=== PATIENT | female | born 1965 | race Caucasian/White ===

== ENCOUNTER → 2022-11-09 10:15 | Outpatient (BNVA) | payer MEDICAID, SELFPAY | PROVIDERS: Referring Provider Family Medicine; Visit Provider Nurse Practitioner Family | DX: M17.11 Unilateral primary osteoarthritis, right knee | CPT/HCPCS: 73560; 73565 ==

== ENCOUNTER 2022-11-13 16:44 | Inpatient (IN) | payer MEDICAID, SELFPAY ==
--- NOTE | 2022-11-13 17:30 | CTR_ITS ---
PROCEDURE INFORMATION: Exam: CT Right Lower Extremity Without Contrast, Ankle Exam date and time: 11/13/2022 10:55 PM Age: 57 years old Clinical indication: Injury or trauma; Fall; Fracture, traumatic; Displaced; Not specified; Patient HX: Fracture of right ankle. ; Additional info: Tib fib fracture R/O posterior malleolus involvement TECHNIQUE: Imaging protocol: CT of the right lower extremity without contrast was performed. Exam focused on the ankle. Radiation optimization: All CT scans at this facility use at least one of these dose optimization techniques: automated exposure control; mA and/or kV adjustment per patient size (includes targeted exams where dose is matched to clinical indication); or iterative reconstruction. REPORTING DATA: Count of CT and Cardiac NM exams in prior 12 months: This patient has received 0 known CTs and 0 known cardiac nuclear medicine studies in the 12 months prior to the current study. COMPARISON: CR (LOW EXM, ) 11/13/2022 6:11 PM RADIATION DOSE METRICS: Total DLP (mGy-cm): 778.7 FINDINGS: Bones/joints: Acute comminuted fracture of the distal tibial shaft extending to the level of the metaphysis with 2 butterfly fracture fragments. Larger butterfly fracture fragment demonstrates mild lateral displacement. The distal tibia demonstrates approximately 1/2 shaft width medial displacement relative to the proximal tibia. No evidence of intra-articular extension. Minimally displaced fracture at the medial malleolus. Predominantly transverse fracture through the distal fibular shaft which demonstrates comminution. Mild medial displacement of the distal fibula. Normal tibiotalar and tibiofibular syndesmotic alignment. Soft tissues: Diffuse ankle soft tissue swelling but most prominent over the lateral malleolus. CT/CT ankle RT wo con* [id number] IMPRESSION: 1. Acute comminuted extra-articular fracture of the distal tibial shaft extending to the metaphysis associated with approximately 1/2 shaft width medial displacement of the distal tibia . 2. Distal fibular shaft fracture with mild displacement. 3. Minimally displaced medial malleolus fracture.
--- NOTE | 2022-11-13 17:30 | XRR_ITS ---
PROCEDURE INFORMATION: Exam: XR Right Tibia and Fibula Exam date and time: 11/13/2022 6:10 PM Age: 57 years old Clinical indication: Injury or trauma; Other: N/a; Additional info: Right tib fib FX TECHNIQUE: Imaging protocol: Radiologic exam of the right tibia and fibula. Views: 2 views. COMPARISON: CR (LOW EXM, ) 11/13/2022 6:07 PM FINDINGS: Bones/joints: Oblique, mildly comminuted fracture of the distal tibial shaft extending to the metaphysis. Approximately half shaft with medial displacement. Additional mildly displaced transverse fracture through the distal fibular shaft with mild medial displacement. Mild anterior displacement of the distal fibula and tibia. Soft tissues: Overlying splint material. XR/XR tibia fibula RT 2V [id number] IMPRESSION: 1. Splint material limits evaluation of the soft tissues and osseous structures. 2. Oblique fracture of the distal tibia without definite intra-articular extension although nondisplaced fracture line extending to the tibiotalar joint is possible. Approximately half shaft width medial displacement of the distal tibia. 3. Transverse fracture of the distal fibula shaft with mild displacement.
--- NOTE | 2022-11-13 17:30 | XRR_ITS ---
PROCEDURE INFORMATION: Exam: XR Right Ankle Exam date and time: 11/13/2022 6:11 PM Age: 57 years old Clinical indication: Injury or trauma; Other: N/a; Additional info: R tib fib FX TECHNIQUE: Imaging protocol: Radiologic exam of the right ankle. Views: 3 or more views. COMPARISON: CR (LOW EXM, ) 11/13/2022 6:10 PM FINDINGS: Bones/joints: Distal tibia and fibular shaft fractures as described on tibia-fibula report. Ankle mortise appears congruent on this nonweightbearing exam. Soft tissues: Unremarkable. XR/XR ankle RT min 3V* [id number] IMPRESSION: Displaced distal tibia and fibular shaft fractures as previously described.
--- NOTE | 2022-11-13 17:30 | XRR_ITS ---
PROCEDURE INFORMATION: Exam: XR Right Knee Exam date and time: 11/13/2022 6:07 PM Age: 57 years old Clinical indication: Injury or trauma; Other: N/a; Additional info: Right tib fib FX TECHNIQUE: Imaging protocol: Radiologic exam of the right knee. Views: 1 or 2 views. COMPARISON: CR XR knees AP WB w RT lmt ORTH 11/09/2022 10:15 AM FINDINGS: Bones/joints: Moderate tricompartmental knee osteoarthrosis. No acute fracture involving the knee. Trace knee joint effusion. Soft tissues: Splint material.. XR/XR knee RT 1-2V [id number] IMPRESSION: No acute osseous abnormality of the right knee.
--- NOTE | 2022-11-13 17:33 | P.MISC_ITS ---
Miscellaneous Note Purpose of Documentation: Ortho note: Full orthopedic consultation note to follow tomorrow morning. Orthopedics was contacted by the [facility] about a potential transfer for a right tib-fib fracture per [facility] emergency department. X-rays were reviewed this is an isolated trauma injury of patient stepping into a hole and has a right distal tib-fib fracture. Per the emergency department at [facility] this is a closed neurovascular intact injury. Patient was splinted and transportation was set up with patient to be admitted by hospitalist team orthopedics consulted. I reviewed the images we will obtain further x-rays once they arrive at [facility] with plan for a CT scan of the right ankle to evaluate for posterior malleolus involvement. Reviewing of the imaging there appears to be enough distal bone stock of the distal tibia to perform a right knee suprapatellar tibial nail with plan for ORIF of the distal fibula given its proximity ankle syndesmosis. Patient will be medically optimized by the internal medicine team. Hold a.m. anticoagulation tomorrow n.p.o. at midnight tonight with plan for surgical intervention at 8 AM tomorrow. Nonweightbearing right lower extremity maintain splint elevation and ice this evening to maintain swelling. Orthopedics will have full orthopedic consult note tomorrow. Jesús Zaragoza DO/orthopedic surgery
--- NOTE | 2022-11-13 17:48 | PM.HP ---
Providers/Chief Complaint Admitting Physician: Jass Bowling DO Chief Complaint: right tibfib fracture History of Present Illness Maria D Russ is a 57 year old female with no significant PMH transferred to hospital for ortho consult from [facility] with Right Tib/Fib fracture. Reports that she was walking on steps when she tripped and fell, resulting in Right ankle twisting underneath her. She was taken to [facility] where XRs confirmed fracture. Ortho was consulted and hospitalist team consulted for medical management. Reports that she is not having much pain at this time. She has not had labs drawn at this time. Ortho is planning to see her later today and plan for surgery tomorrow. Review of Systems General: Reports: 10 or more systems reviewed and unremarkable except in HPI and below Const: Denies: fever(s) or chills Musc: Reports: extremity pain and extremity swelling Medications/Allergies Home Medications Medication Instructions Recorded Confirmed Last Taken Type meloxicam 15 mg tablet 15 mg PO DAILY #60 tabs 11/09/22 11/09/22 Unknown Rx Allergies Allergy/AdvReac Type Severity Reaction Status Date / Time alprazolam [From Xanax] Allergy sick Verified 11/09/22 10:12 codeine Allergy ADR-Confusi Verified 11/13/22 17:31 on Penicillins Allergy sick Verified 11/09/22 10:12 Vitals/I&O/Wt Last Vital Signs O2 Del Method Room Air 11/13/22 16:53 Weight last 48 hrs Weight 274 lb Physical Exam Narrative: General: Cooperative patient in no apparent distress. Well developed. HEENT: Normocephalic, Atraumatic. External ears normal. Nasal passages patent without drainage. MMM. Heart: RRR. Resp: LCTA. No respiratory distress, no use of accessory muscles. Abd: Soft, non-tender. Non-distended. Extremities: No edema. RLE with wrap in place. Cap refill <2sec. Skin: No rash or lesions on exposed areas. Neuro: No focal motor or sensory loss. Data 11/13/22 18:40 11/13/22 18:40 A&P Assessment and plan (1) Fracture of right tibia and fibula: (2) Nicotine dependence, cigarettes, with other nicotine-induced disorders: Plan 57 yo F admitted for R tib/fib fracture fracture. Admit to med surg. ortho consulted. Planning for surgery tomorrow. NPO after midnight. Hold VTE PPx until after surgery. Labs today. Nicotine patch. Pain currently controlled. Dilaudid and morphine available if needed for analgesia. Code Status: full IVF: None DVT PPx: SCD's GI PPx: Protonix ABx: Ortho to determine. Diet: NPO after midnight. Regular diet for dinner. Discharge plan: Home when able. Attestations Medical Necessity Statement*: Admit to inpatient for surgical repair of tib/fib. Coding Level of Care Code Acute Code for Chg Fwd Straight Forward/Low MDM includes number and complexity of problems actively addressed during encounter, amount and/or complexity of data reviewed/ordered and described risk of complication, morbidity or mortality of management as documented Diagnoses Fracture of right tibia and fibula S82.201A; S82.401A Nicotine dependence, cigarettes, with other nicotine-induced disorders F17.218
[2022-11-13] MEDS: nicotine 14 mg Patch 1 PATCH TRANSDERMA (18:22)
[2022-11-13 18:23] VITALS: RESP 18
[2022-11-13] MEDS: morphine 4 mg/mL SDV 1 mL 2 MG IVP (18:23)
[2022-11-13 18:55] LABS: Basophils # 0.1 10^3/uL (0.0-0.1); Basophils % 0.5 %; Eosinophils # 0.1 10^3/uL (0.0-0.8); Eosinophils % 1.1 %; Hematocrit 47.3 % (36-47); Lymphocytes # 2.7 10^3/uL (0.8-4.8); Lymphocytes % 25.5 %; Mean Corpuscular HGB Conc 31.7 g/dL (30-55); Mean Corpuscular Hemoglobin 29.9 pg (27-33); Mean Corpuscular Volume 94.4 fl (85-98); Mean Platelet Volume 10.1 fL (7.4-10.4); Monocytes # 0.9 10^3/uL (0.2-0.9); Monocytes % 8.1 %; Neutrophils # 6.75 10^3/uL (1.8-7.7); Neutrophils % 64.5 %; Nucleated Red Blood Cells % 0 %; Platelet Count 303 10^3/cmm (157-399); Red Blood Count 5.01 10^6/uL (3.85-5.65); Red Cell Distribution Width 15.9 % (12.1-15.1); White Blood Count 10.45 10^3/uL (3.29-11.43)
[2022-11-13 19:42] LABS: Alanine Aminotransferase 27 U/L (0-33); Alkaline Phosphatase 118 U/L (35-105); Anion Gap 13.6 (5-19); Aspartate Amino Transferase 21 U/L (0-32); Blood Urea Nitrogen 19 mg/dL (6-20); Calcium 8.9 mg/dL (8.5-10.5); Carbon Dioxide 28 mmol/L (22-29); Chloride 102 mmol/L (98-107); Glomerular Filtration Rate 46.5 mL/min (90-130); Glucose 148 mg/dL (65-115); Osmolality Calculated 293 mOsm/kg (285-295); Potassium 4.6 mmol/L (3.5-5.1); Sodium 139 mmol/L (136-145); Total Bilirubin 0.3 mg/dL (0.15-1.2)
[2022-11-13 20:23] VITALS: RESP 18
[2022-11-13] MEDS: HYDROmorphone 1 mg/mL INJ 1 mL 0.5 MG IVP ×2 (20:23→23:41)
[2022-11-13 20:40] VITALS: BP 154/88; PULSE 88; RESP 19; TEMP 36.8; O2SAT 90
[2022-11-13] MEDS: TRAMadol 50 mg Tablet PO (20:48)
[2022-11-13] MEDS: acetaminophen 500 mg Tablet 1000 MG PO (20:49)
[2022-11-13 23:13] VITALS: BP 131/92; PULSE 80; RESP 20; TEMP 36.8; O2SAT 97
[2022-11-13 23:41] VITALS: RESP 16
[2022-11-14] VITALS (32 sets, daily range): BP systolic 023–188; BP diastolic 70–116; PULSE 72–106; RESP 16–24; TEMP 36.5–37.1; O2SAT 87–96
--- NOTE | 2022-11-14 | XR_ITS ---
WS: [id number] Exam: XR tibia fibula RT 2V [id number] Date/Time of Exam: 11/14/2022 12:00 AM Reason For Exam: ORIF RIGHT TIB FIB. OR PIC Intraoperative C-arm images of the RIGHT tibia and fibula are submitted for evaluation. There is a comminuted fracture of the lower tibia stabilized with intramedullary nidia fixation in sati sfactory alignment. There is also plate and screw fixation of a comminuted distal fibular fracture in satisfactory position. No other fractures are identified. The remainder of the tibia and fibula is i ntact. Moderate DJD at the knee. IMPRESSION: 1. Satisfactory internal fixation involving fractures of the distal tibia and fibula.
[2022-11-14] MEDS: oxyCODONE 5 mg IR Tab/Cap PO ×2 (02:31→16:28)
[2022-11-14] MEDS: acetaminophen 500 mg Tablet 1000 MG PO ×2 (04:57→21:27)
[2022-11-14] MEDS: HYDROmorphone 1 mg/mL INJ 1 mL 0.5 MG IVP ×2 (05:04→13:53)
[2022-11-14 05:51] LABS: Basophils # 0.1 10^3/uL (0.0-0.1); Basophils % 0.6 %; Eosinophils # 0.3 10^3/uL (0.0-0.8); Eosinophils % 3.9 %; Lymphocytes # 2.3 10^3/uL (0.8-4.8); Lymphocytes % 29.8 %; Mean Corpuscular HGB Conc 31.3 g/dL (30-55); Mean Corpuscular Hemoglobin 29.8 pg (27-33); Mean Corpuscular Volume 95.1 fl (85-98); Monocytes # 0.8 10^3/uL (0.2-0.9); Monocytes % 10.7 %; Neutrophils # 4.24 10^3/uL (1.8-7.7); Neutrophils % 54.9 %; Nucleated Red Blood Cells % 0 %; Platelet Count 268 10^3/cmm (157-399); Red Blood Count 4.73 10^6/uL (3.85-5.65); Red Cell Distribution Width 15.9 % (12.1-15.1); White Blood Count 7.73 10^3/uL (3.29-11.43)
[2022-11-14 06:20] LABS: Magnesium 2.1 mg/dL (1.7-2.3)
--- NOTE | 2022-11-14 07:22 | PM.CONSULT ---
Providers/Reason For Consult Consulting Physician/Specialty*: Jesús Zaragoza DO/orthopedic surgery Reason for Consult*: Right tib-fib fracture Requesting Physician: Dr. Mar Attending Physician: Jass Bowling DO History of Present Illness History of Present Illness Maria D Russ is a 57 year old female with no significant PMH transferred to hospital for ortho consult from [facility] with Right Tib/Fib fracture. Reports that she was walking on steps when she tripped and fell, resulting in Right ankle twisting underneath her.? She was taken to [facility] where XRs confirmed fracture.? Ortho was consulted and hospitalist team consulted for medical management.? Report from emergency department was patient had a closed neurovascular intact injury and was splinted sent to the [facility]. Patient states pain is controlled with medications. Patient denies any fevers chills chest pain shortness of breath nausea or vomiting. She does have a smoking history she was educated on the importance of smoking cessation particularly in the way of fracture healing. Denies any history of diabetes mellitus. she denies any loss of consciousness or any other pain or injury elsewhere in her body. Patient's been n.p.o. since midnight. Review of Systems General: Reports: 10 or more systems reviewed and unremarkable except in HPI and below Medications/Allergies Home Medications Medication Instructions Recorded Confirmed Last Taken Type meloxicam 15 mg tablet 15 mg PO DAILY #60 tabs 11/09/22 11/09/22 Unknown Rx Allergies Allergy/AdvReac Type Severity Reaction Status Date / Time alprazolam [From Xanax] Allergy sick Verified 11/09/22 10:12 codeine Allergy ADR-Confusi Verified 11/13/22 17:31 on Penicillins Allergy sick Verified 11/09/22 10:12 Current Medications Generic Name Dose Route Start Last Admin Trade Name Freq PRN Reason Stop Dose Admin Acetaminophen 1,000 mg 11/13/22 20:15 11/14/22 04:57 Acetaminophen 500 Mg Tablet PO 1,000 mg Q8H DALIA Administration Hydromorphone HCl 0.5 mg 11/13/22 20:04 11/14/22 05:04 Hydromorphone 1 Mg/Ml Inj 1 Ml IVP 0.5 mg Q3H PRN Administration MILD PAIN Morphine Sulfate 2 mg 11/13/22 17:44 11/13/22 18:23 Morphine 4 Mg/Ml Sdv 1 Ml IVP 2 mg Q4H PRN Administration SEVERE PAIN Nicotine 1 patch 11/13/22 18:00 11/13/22 18:22 Nicotine 14 Mg Patch TRANSDERMA 1 patch DAILY DALIA Administration Oxycodone HCl 5 - 10 mg 11/13/22 20:07 11/14/22 02:31 Oxycodone 5 Mg Ir Tab/Cap PO 5 mg Q4H PRN Administration SEVERE PAIN Tramadol HCl 50 mg 11/13/22 20:11 11/13/22 20:48 Tramadol 50 Mg Tablet PO 50 mg Q6H PRN Administration BREAKTHROUGH PAIN Vitals/I&O/Wt Last Vital Signs Temp 98.3 F 11/14/22 04:56 Pulse 85 11/14/22 04:56 Resp 19 H 11/14/22 05:04 BP 156/83 11/14/22 04:56 Pulse Ox 90 11/14/22 04:56 O2 Del Method Room Air 11/13/22 16:53 11/13/22 11/14/22 11/14/22 22:59 06:59 14:59 Intake Total 240 / 240 Balance 240 / 240 Weight last 48 hrs Weight 274 lb Physical Exam Narrative: Orthopedic examination: General cooperative patient no apparent distress moderate discomfort secondary to pain HEENT-Normocephalic atraumatic Respiratory-normal respirations no retractions or respiratory distress Orthopedic specific examination right lower extremity is placed in a short leg splint. Her compartments are soft and compressible. She has tenderness to palpation at the fracture site given patient's unstable fracture the splint was left on in place and limits my full examination. She has tenderness to palpation of her right knee and guarded on knee range of motion secondary to her lower extremity fracture. She is able to wiggle her toes she does endorse sensations intact to light touch of the toes the toes are pink warm and perfused. Patient has no pain with logroll at the right hip. Secondary survey examination demonstrates no tenderness to palpation of the bilateral shoulders elbows wrists or hands or the left lower extremity joints she has normal range of motion of these joints with no tenderness to palpation and gross motor and sensory is intact. Data 11/14/22 05:36 11/13/22 18:[address]: My impression: Review of images of the CT scan of the right ankle demonstrate a distal fibular shaft fracture with mild displacement as well as an extra-articular distal tibia shaft fracture does not appear to have any posterior malleolus or intra-articular involvement. There does appear to be a small fracture of the medial malleolus more consistent with a deltoid avulsion Radiologist's impression: CT/CT ankle RT wo con* [id number] IMPRESSION: 1. ? Acute comminuted extra-articular fracture of the distal tibial shaft extending to the metaphysis associated with approximately 1/2 shaft width medial displacement of the distal tibia . 2. ? Distal fibular shaft fracture with mild displacement. 3. ? Minimally displaced medial malleolus fracture. ? Xray Ortho: My impression: Review of x-rays of the knee tib-fib and ankle demonstrate a distal third tib-fib fracture comminuted. Does not appear to have intra-articular involvement. Patient was has no previous hardware in the ankle or the knee however right knee degenerative joint disease noted with a valgus deformity. A&P Assessment and plan (1) Fracture of right tibia and fibula: (2) Osteoarthritis of right knee: Qualifiers: Osteoarthritis type: primary Qualified Code(s): M17.11 - Unilateral primary osteoarthritis, right knee (3) Nicotine dependence, cigarettes, with other nicotine-induced disorders: Plan N.p.o. since midnight Nonweightbearing Maintain splint Internal medicine for medical management and preoperative optimization Reviewed Labs Reviewed images?CT scan demonstrates no posterior malleolus involvement Right tib-fib fracture recommend OR today for right tibia intramedullary nail and possible distal fibula open reduction internal fixation Patient understands and agrees with current plan. All questions answered. Patient is a 57-year-old female sustained a right tib-fib fracture closed neurovascularly intact with splint at an outside facility, transferred to our facility from management. Patient's had appropriate imaging performed CT scan demonstrates no posterior malleolus involvement and she has an appropriate bone stock distally I feel this can accommodate a intramedullary nail with hopefully not disrupting much of her biology of the distal tibial shaft fracture. There is a small nondisplaced medial malleolus avulsion type injury this does not appear to have a large bony fragment associated and is in perfect position we will likely treat this nonoperatively. She does have a distal fibula fracture that is close to the ankle syndesmosis and will stress this after the tibial nail is placed and potentially ORIF the distal fibula. Patient understands risk benefits complication alternatives with surgery risk of surgery include not limited to make a better make it worse injury to nerves vessels or tendons, knee pain, malunion, nonunion, failure of hardware, further surgery to remove hardware. Understanding these risks with surgery patient elects proceed with surgical intervention. All questions have been answered at this time. Consult Attestations Medical Necessity Statement: Right distal tib-fib fracture Coding Level of Care Code Acute Code for [facility] Diagnoses Fracture of right tibia and fibula S82.201A; S82.401A Osteoarthritis of right knee M17.11 Osteoarthritis type: primary Nicotine dependence, cigarettes, with other nicotine-induced disorders F17.218 Time Spent (min) 45
[2022-11-14] MEDS: sodium chloride 0.9% 1,000 ML 30 ML IV (07:54)
--- NOTE | 2022-11-14 08:17 | ANES.PREANE2 ---
Pre-Anesthetic Assessment Height/Weight: Height 1.73 m Weight 124.284 kg Temp Pulse Resp BP Pulse Ox O2 Del Method O2 Flow Rate 97.7 F 76 16 152/88 95 Nasal Cannula 3 11/14/22 07:40 11/14/22 07:40 11/14/22 07:40 11/14/22 07:40 11/14/22 07:40 11/14/22 07:40 11/14/22 07:40 Preop Diagnosis: Right tib fib fracture Operation Date: 11/14/22 08:20 Proposed Procedures p ORIF Tibia/Fibula(Right) - Jesús Buchanan, Familial anesthetic complications: none Was Beta Edson taken within 24 hours: N/A Was Clonidine taken within 24 hours: N/A Last intake: Intake Last Liquid Date 11/13/22 Last Liquid Time 23:00 Last Solid Date 11/13/22 Last Solid Time 17:00 Social Tobacco and No alcohol Exam alert, oriented x 3 and regular rate & rhythm Airway Submandibular: within normal limits Cervical ROM: within normal limits Mallampati: Class II Dentition: chipped and loose Comments: Comments: Very poor dentition Pulmonary Chronic Obstructive Pulmonary Disease Metabolic Morbid Obesity [facility] Osteoarthritis/DJD Anesthetic Plan ASA status: 3 Anesthesia: General Medications/Allergies Home Medications Medication Instructions Recorded Confirmed Last Taken Type meloxicam 15 mg tablet 15 mg PO DAILY #60 tabs 11/09/22 11/09/22 Unknown Rx hydrocodone 5 mg-acetaminophen 325 1 tab PO Q6H PRN pain 5 days #20 11/14/22 Unknown Rx mg tablet tabs ondansetron 4 mg disintegrating 4 mg PO Q8H PRN nausea and 11/14/22 Unknown Rx tablet vomiting 3 days #9 tabs Allergies Allergy/AdvReac Type Severity Reaction Status Date / Time alprazolam [From Xanax] Allergy sick Verified 11/09/22 10:12 codeine Allergy ADR-Confusi Verified 11/13/22 17:31 on Penicillins Allergy sick Verified 11/09/22 10:12 Current Medications Generic Name Dose Route Start Last Admin Trade Name Freq PRN Reason Stop Dose Admin Acetaminophen 1,000 mg 11/13/22 20:15 11/14/22 04:57 Acetaminophen 500 Mg Tablet PO 1,000 mg Q8H DALIA Administration Hydromorphone HCl 0.5 mg 11/13/22 20:04 08/26/23 05:04 Hydromorphone 1 Mg/Ml Inj 1 Ml IVP 0.5 mg Q3H PRN Administration MILD PAIN Sodium Chloride 1,000 mls @ 30 mls/hr 11/14/22 07:45 11/14/22 07:54 Sodium Chloride 0.9% IV 30 mls/hr .Q24H DALIA Administration Morphine Sulfate 2 mg 11/13/22 17:44 11/13/22 18:23 Morphine 4 Mg/Ml Sdv 1 Ml IVP 2 mg Q4H PRN Administration SEVERE PAIN Nicotine 1 patch 11/13/22 18:00 11/13/22 18:22 Nicotine 14 Mg Patch TRANSDERMA 1 patch DAILY DALIA Administration Oxycodone HCl 5 - 10 mg 11/13/22 20:07 11/14/22 02:31 Oxycodone 5 Mg Ir Tab/Cap PO 5 mg Q4H PRN Administration SEVERE PAIN Tramadol HCl 50 mg 11/13/22 20:11 11/13/22 20:48 Tramadol 50 Mg Tablet PO 50 mg Q6H PRN Administration BREAKTHROUGH PAIN Data Anesthesia 11/14/22 05:36 11/13/22 18:40 Short CBC 11/13/22 11/14/22 Range/Units 18:40 05:36 WBC 10.45 7.73 (3.29-11.43) 10^3/uL Hgb 15.00 14.10 (11.27-16.99) g/dL Hct 47.3 H 45.0 (36-47) % MCV 94.4 95.1 (85-98) fl Plt Count 303 268 (157-399) 10^3/cmm Neut % (Auto) 64.5 54.9 % Neut # (Auto) 6.75 4.24 (1.8-7.7) 10^3/uL BMP 11/13/22 18:40 Sodium 139 Potassium 4.6 Chloride 102 Carbon Dioxide 28 BUN 19 Creatinine 1.2 H Glucose 148 H Calcium 8.9 Liver Function 11/13/22 Range/Units 18:40 Total Bilirubin 0.3 (0.15-1.2) mg/dL AST 21 (0-32) U/L ALT 27 (0-33) U/L Alkaline Phosphatase 118 H (35-105) U/L Albumin 4.0 (3.5-5.2) g/dL Blood Bank 11/13/22 18:40 Blood Type B Positive Rho(D) Type Positive Antibody Screen Negative Cardiac Studies: No Data to Display
[2022-11-14] MEDS: ceFAZolin 2,000 MG in sodium chloride 0.9% (plus) 50 ML 100 MG IV ×2 (10:32→18:23)
--- NOTE | 2022-11-14 13:24 | PM.OP2 ---
Brief Operative Note Date of procedure: 11/14/22 Pre-op diagnosis: comminute Distal tibial shaft fracture and distal fib fracture Post-op diagnosis: same Procedure Done: Right distal tibia shaft suprapatella intramedulary nail Rigth distal fibula open reduction with internal fixation Surgeon: Jesús Zaragoza Estimated blood loss (mL): 150 Complications: none Post-op Plan: Keep dressing clean dry and intact Leave splint on and in place until follow-up visit Do not get splint wet, if it does contact the office for a office visit to have it changed No baths or soaks Nonweightbearing to operative extremity Utilize crutches/walker/knee scooter as tolerated to continue with ambulation while maintaining restrictions Encourage knee range of motion as tolerated Ice and elevate as needed for pain and swelling Take pain medication as prescribed Take antinausea medication as needed Take lovenox for blood clot prevention Supplement with Citracal/vitamin D for bone health and healing Take [id number] Colace as needed for constipation postoperatively Follow-up with Dr. Zaragoza in the office in 2 weeks Contact the office for any questions or concerns(i.e. fevers, increased drainage or redness around the incision site etc.)? Condition: stable Disposition: PACU Coding Level of Care Code Acute Code for Jimg Yeny
--- NOTE | 2022-11-14 13:29 | XR_ITS ---
WS: [id number] Exam: XR tibia fibula RT 2V [id number] Date/Time of Exam: 11/14/2022 1:29 PM Reason For Exam: ORIF Tib fib Comparison 11/14/2022 at 11:28 a.m. . There is a comminuted spiral fracture of the lower tibia stabilized with intramedullary nidia fixatio n. There is also plate and screw fixation involving a comminuted fracture of the lower fibula. Both f ractures are in good alignment for healing. Surgical skin clips noted medial and lateral at the ankl e. The remainder of the tibia and fibula are intact. Moderate degenerative changes at the knee. Poste rior fiberglass splint. IMPRESSION: 1. Satisfactory ORIF involving fractures of the distal tibia and fibula with internal fixation.
--- NOTE | 2022-11-14 13:29 | PM.PACU ---
PACU note Narrative: Patient is a 57-year-old female who had a right distal tib-fib and fibula fracture. She underwent right tibia shaft suprapatellar intramedullary nail and right distal fibula open reduction with internal fixation. pt transferred to PACU in stable condition. Dressing is dry. pt is awake and alert. Responding to my questions accordingly. Unable to assess plantarflexion and dorsiflexion due to splint in place. Patient can wiggle toes. Distal pulses are palpable toes are warm and well-perfused. Pain is controlled. Exam: somnolent, arousable Disposition: back to floor
--- NOTE | 2022-11-14 13:30 | PM.OP ---
Operative Report Date of procedure: November 14, 2022 Pre-op diagnosis: Preop Diagnosis Right tib fib fracture Procedure: Post-op diagnosis: Right distal tibia fracture Right distal fibula fracture Procedure done: Right distal tibia shaft suprapatellar intramedulary nail Right distal fibula open reduction with internal fixation Implants: Param tibial nail 10 mm x 360 mm Proximal screws: 5 mm x 47.5 mm, 5 mm x 42.5 mm Distal screws: Advanced locking screws 5 mm x 47.5 mm, 5 mm x 40 mm, 5mm x 40.5 Param anatomic distal fibula plate 5 hole Combination of 3.5 mm locking and nonlocking screws Surgeon: Jesús Zaragoza DO Balloon Seller: TIFFANI Augustine was necessary for assistance in execution of procedure by assistance with maintaining traction and holding reduction while nail is being passed as well as to stabilize length as well as assistance with retraction and protection of neurovascular structures Estimated blood loss: 125mL No tourniquet was used during this case IV fluids: See anesthesia record Urine output: See anesthesia record Complications: None Findings: See operative report narrative Condition: stable Disposition: floor Brief History: Patient seen evaluated in outside emergency department found to have a displaced and comminuted right distal tib-fib fracture this was excepted by our facility by her primary hospitalist team and orthopedics was consulted. Patient has a closed neurovascularly intact injury to the right lower extremity no other injuries noted. Review of imaging does show comminuted distal tib-fib fracture on the right side. We did obtain CT scans which showed no intra-articular extension. The distal fibula fracture is low and in close proximity to the syndesmosis and ankle joint and will be evaluated intraoperatively as far as fixation goes. Given patient had enough of the distal bone stock decision was made for a right tibia suprapatellar nail as well as possibly a right distal fibula open reduction internal fixation we talked about treatment options in detail. Patient's been medically optimized per the primary team. Patient understands the risk benefits complications alternatives to surgical and nonsurgical treatment options.? She understands her risks and she through shared decision making elects to proceed with surgical intervention.? All questions answered. Procedure: Patient was seen and evaluated in the preoperative holding area.? Consent was reviewed and signed with patient.? All questions were answered preoperatively.? The correct extremity was marked.? Anesthesia seen evaluated patient once cleared for surgery and was medically optimized by the internal medicine team patient was then taken back to the operative suite.? She was placed in supine position.? All bony prominences well-padded patient was appropriately secured to the bed.? She underwent anesthesia per the anesthesia department.? The right ipsilateral hip was then placed with a bump and a bone foam was applied to the right lower extremity.? A nonsterile tourniquet applied to the right thigh.? Once appropriately anesthetized the right lower extremity was then prepped and draped in standard orthopedic fashion.? Final timeout performed.? Patient received appropriate preoperative antibiotics. Tourniquet was not insufflated during this case. I began with the suprapatellar nail for the tibial fracture.? Small incision made longitudinally above the superior pole of patella sharp scalpel incision through skin and subcutaneous tissue.? I mobilized the fat off of the quad tendon this was split longitudinally directly into the knee joint.? This was then evacuated of synovial fluid and subsequently entered Transactis's suprapatellar nail guide device and then placed my starting guidewire and appropriate position which was confirmed and AP and lateral planes to be in appropriate position just medial to lateral tibial spine and just off the articular margin anteriorly.? Once this was confirmed to be in appropriate position I then placed my opening reamer and then subsequently inserted the long ball-tipped guidewire which was then impacted directly onto the physis.? My surgical assistant certified was utilized to maintain traction and assist in holding reduction. Guidewire impacted into the distal physis. This is excellent center center position.?? At this point my ball-tipped guidewire was in center center position appropriately and set for reaming.? Reduction was manually held throughout the reaming. I used large fluoroscopic C arm for the entirety and placement of nail as well as to evaluate for reaming and maintenance of fracture reduction. I then took a measurement and the nail was confirmed to be 360 mm in length.? I then subsequently reamed up to a 11-1/2 mm reamer which had excellent chatter and plan for a 10 mm nail.? Reduction was maintained throughout reaming this was then subsequently opened on the back table and attached to the assistant professor of biochemistry guide.? While my surgical assistant certified stabilized the foot I then subsequently impacted the nail to appropriate depth the nail was in center center position with maintenance of anatomic reduction.? I then locked the screw proximally with the cannulated targeting guide.? First started with my static locking screw which was then subsequently small stab incision blunt hemostat directly onto bone subsequently drilled measured and placed in appropriate length proximal locking screw.? Next I placed an additional proximal locking screw in the subsequent same fashion this was placed in the dynamic hole.? Screw was then subsequently placed and had excellent fixation this completed the proximal fixation.? I then transitioned to my distal screw fixation which plan was for perfect [place] technique.? I subsequently utilizing perfect [place] technique with fluoroscopic imaging made a small stab incision to lock the screw from medial to lateral of my distal most screw this was subsequently drilled measured and appropriate length screw was then subsequently placed and had excellent fixation.? I did utilize Param's advanced locking technology for added fixation given the distal nature of this fracture. Given there was enough bone stock distally I then utilizing the same perfect [place] technique placed an additional distal advance locking screw from medial to lateral position. This was subsequently drilled measured appropriate length screw placed. Excellent fixation noted. next I placed an additional advanced locking screw from anterior to posterior which a small stab incision was made blunt dissection with hemostat directly onto bone and inserted the drill bit and subsequently drilled measured and placed in appropriate length screw utilizing perfect [place] technique from anterior to posterior.?This completed my distal fixation.? I then subsequently stressed the ankle with external stress test and shifting of the talus was noted with medial clear space widening and shifting in fracture movement of the distal fibula as result given the instability and inherent nature of ankle stability elected for open reduction internal fixation distal fibula. A standard direct lateral approach was made to the right distal fibula? Incision was made centered over fracture of the distal fibula.? Care was made to protect the SPN nerve.? I then utilized a ling face elevator to elevate the periosteum off the distal fibula.? Transverse fracture of the distal fibula was noted. This was then freed of debris and I used sharp scalpel excision to clear off the cortical bone to obtain in anatomic read for anatomic reduction and appropriate fibular length and rotation.? Given the transverse nature this was not amendable for lag screw fixation and plan was for bridge plating technique. Once fracture was appropriately reduced I utilized C arm to confirm appropriate positioning and fibular length as well as rotation once I was satisfied with this I then elected for a 5 hole distal fibular anatomic plate with Transactis. this was confirmed to be in appropriate position and multiple orthogonal images and I subsequently drilled a nonlocking screw proximally to bring the plate to bone as well as distally to secure the plate to bone distally.? Once I was satisfied with my appropriate plate placement and maintenance of reduction this plate was placed in neutralization fashion and I subsequently made a combination of locking and nonlocking screws to complete this construct.? This completed distal fibula fixation. I then subsequently took the ankle through external stress test and at this point in time the ankle mortise was stable and congruent symmetric on the mortise as well as external stress test mortise no evidence of clear space widening or shifting of the talus. This completed my fixation. Hemostasis was satisfactory.? All suprapatellar insertion guides were then subsequently removed I then took final x-rays of the entire tib-fib confirming satisfactory reduction and fixation distal tib-fib fracture. Incisions were all then thoroughly irrigated. I then subsequently closed the incisions in standard fashion.? Lateral incision was closed with interrupted 2-0 Vicryl suture and britton.? The proximal incision was then closed with deep 0 Vicryl 2-0 Vicryl and britton for skin.? The small percutaneous incisions were then closed with staple incision sites were then dressed with Xeroform 4 x 4's ABD Curlex soft roll and cast padding a posterior Ortho-Glass short leg splint was then applied.? Patient was then subsequently awakened from anesthesia and taken the PACU in stable condition.? Patient tolerated procedure without complications. Disposition:Patient taken to PACU in stable condition.? Recovering well.? Patient will return to the floor postoperatively.? We will be nonweightbearing to the right lower extremity.? Posterior short leg splint on in place.? PT/OT.? Postoperative antibiotics.? Elevation and ice.? DVT prophylaxis.? Internal medicine on board for medical management.? Orthopedics will continue to monitor.? We will follow-up with me in the office in 2 weeks.
[2022-11-14] MEDS: fentaNYL 50 mcg/mL INJ 2mL 100 MCG IVP (13:34)
[2022-11-14] MEDS: hyDRALAzine 20 mg/mL INJ 1 mL 10 MG IVP (13:41)
[2022-11-14] MEDS: fentaNYL 50 mcg/mL INJ 2mL IVP (13:45)
--- NOTE | 2022-11-14 13:50 | PM.PN ---
Subjective Subjective: Recently back from surgery. States that she is hungry, would like something to eat. Is requesting some pain medication at this time. Vitals/I&O/Wt Last Vital Signs Temp 98.2 F 11/14/22 13:24 Pulse 94 11/14/22 13:35 Resp 22 H 11/14/22 13:35 BP 172/102 11/14/22 13:35 Pulse Ox 93 11/14/22 13:35 O2 Del Method Simple Mask 11/14/22 13:35 O2 Flow Rate 10 11/14/22 13:35 11/13/22 11/14/22 11/14/22 22:59 06:59 14:59 Intake Total 240 / 240 550 / 550 Output Total 125 / 125 Balance 240 / 240 425 / 425 Weight last 48 hrs Weight 274 lb Physical Exam Narrative: General: Cooperative patient in no apparent distress. Well developed. HEENT: Normocephalic, Atraumatic. External ears normal. Nasal passages patent without drainage. MMM. Heart: RRR. Resp: LCTA. No respiratory distress, no use of accessory muscles. Abd: Soft, non-tender. Non-distended. Extremities: RLE with dressing in place. Cap refill is <2 seconds. Skin: No rash or lesions on exposed areas. Neuro: No focal motor or sensory loss. Data 11/14/22 05:36 11/13/22 18:40 A&P Assessment and plan (1) Fracture of right tibia and fibula: (2) Nicotine dependence, cigarettes, with other nicotine-induced disorders: Plan 57 yo F admitted for R tib/fib fracture fracture Status post ORIF of the right tib-fib. Continue close inpatient monitoring. Patient is recently back from surgery. Will allow regular diet. Repeat a.m. labs. Arranging for DME and discharge needs. PT/OT to evaluate and treat. Nicotine patch. Lovenox for VTE ppx. Analgesia per ortho. Code Status: full IVF: LR at 75. DVT PPx: Lovenox GI PPx: Protonix ABx: Cefazolin Diet: Regular Discharge plan: Home. consider HH referral. Attestations Medical Necessity Statement*: Continue inpatient management for post-surgical monitoring, PT/OT, DME, abx. Coding Level of Care Code Acute Code for Chg Fwd Moderate MDM includes number and complexity of problems actively addressed during encounter, amount and/or complexity of data reviewed/ordered and described risk of complication, morbidity or mortality of management as documented Diagnoses Fracture of right tibia and fibula S82.201A; S82.401A Nicotine dependence, cigarettes, with other nicotine-induced disorders F17.218
[2022-11-14] MEDS: lactated ringers 1,000 ML 75 ML IV (15:15)
[2022-11-14] MEDS: calcium carb-vit d 600mg/400unit 1 Tablet 1 EACH PO (17:48)
[2022-11-14] MEDS: iron polysaccharide complex 150 mg Capsule PO (17:48)
[2022-11-14] MEDS: docusate sodium 100 mg Capsule PO (17:48)
[2022-11-14] MEDS: chlorhexidine gluconate 0.12% Btl 473 mL 30 ML MUCOUS MEM ×2 (17:51→21:27)
[2022-11-15] VITALS (8 sets, daily range): BP systolic 143–156; BP diastolic 76–86; PULSE 67–98; RESP 16–20; TEMP 36.4–37.1; O2SAT 92–98
[2022-11-15] MEDS: ceFAZolin 2,000 MG in sodium chloride 0.9% (plus) 50 ML 100 MG IV ×2 (02:33→09:06)
[2022-11-15] MEDS: lactated ringers 1,000 ML 75 ML IV (04:02)
[2022-11-15] MEDS: acetaminophen 500 mg Tablet 1000 MG PO ×3 (04:02→21:02)
[2022-11-15] MEDS: morphine 4 mg/mL SDV 1 mL 2 MG IVP ×2 (04:08→22:09)
[2022-11-15 04:57] LABS: Basophils % 0.2 %; Eosinophils % 0.2 %; Hematocrit 41.9 % (36-47); Lymphocytes # 1.7 10^3/uL (0.8-4.8); Lymphocytes % 20.2 %; Mean Corpuscular Hemoglobin 30.6 pg (27-33); Mean Corpuscular Volume 98.6 fl (85-98); Mean Platelet Volume 10.4 fL (7.4-10.4); Monocytes # 0.8 10^3/uL (0.2-0.9); Monocytes % 9.7 %; Neutrophils % 69.3 %; Nucleated Red Blood Cells % 0 %; Platelet Count 234 10^3/cmm (157-399); Red Blood Count 4.25 10^6/uL (3.85-5.65); Red Cell Distribution Width 16.1 % (12.1-15.1); White Blood Count 8.52 10^3/uL (3.29-11.43)
[2022-11-15 05:15] LABS: Blood Urea Nitrogen 15 mg/dL (6-20); Calcium 9.1 mg/dL (8.5-10.5); Carbon Dioxide 25 mmol/L (22-29); Chloride 105 mmol/L (98-107); Glomerular Filtration Rate 103.4 mL/min (90-130); Glucose 130 mg/dL (65-115); Osmolality Calculated 291 mOsm/kg (285-295); Sodium 139 mmol/L (136-145)
[2022-11-15 05:16] LABS: Anion Gap 13.7 (5-19); Potassium 4.7 mmol/L (3.5-5.1)
--- NOTE | 2022-11-15 07:39 | P.PN_ITS ---
Patient seen and evaluated with TIFFANI agree with assessment and plan. Patient stable for discharge from orthopedic standpoint Patient to follow-up with us in the office in 2 weeks Jesús Zaragoza DO/orthopedic surgery Subjective Subjective: Patient was seen and examined. Pain is controlled. She has not gotten up with therapy. She will work with therapy today. She would like to go home today. Internal medicine is primary. No acute issues overnight. Vitals/I&O/Wt Last Vital Signs Temp 97.6 F 11/15/22 07:19 Pulse 74 11/15/22 07:19 Resp 17 11/15/22 07:19 BP 156/85 11/15/22 07:19 Pulse Ox 96 11/15/22 07:19 O2 Del Method Nasal Cannula 11/15/22 07:19 O2 Flow Rate 4 11/14/22 20:00 11/14/22 11/15/22 11/15/22 22:59 06:59 14:59 Intake Total 520 / 4070 1008.75 / 5078.75 Output Total 360 / 1035 500 / 1535 Balance 160 / 3035 508.75 / 3543.75 Weight last 48 hrs Weight 274 lb Physical Exam Narrative: Right lower leg?patient's posterior leg splint is dry and intact. Toes are warm and well perfused and she is able to wiggle toes. Cap refill under 2 seconds. superficial and deep peroneal nerve sensation to foot intact. The rest of lower leg exam is limited due to splint. Const: COMMON NORMALS: no acute distress, healthy appearing and alert Resp: COMMON NORMALS: normal respiratory effort Neuro: SENSORIUM/ORIENTATION: Yes alert Skin: GENERAL SKIN EXAM: dry skin Urinary Catheter Management: Rubina: Cath Placed During This Visit: yes Urinary Catheter Date of Insertion: 11/14/22 Urinary Catheter Time of Insertion: 14:30 Data 11/15/22 04:30 11/15/22 04:30 Xray Ortho: My impression: Postoperative x-rays of tib-fib of the right lower extremity demonstrates reduced in good alignment with stable fixation distal tib-fib fracture. Congruent ankle mortise noted. A&P Assessment and plan (1) Fracture of right tibia and fibula: (2) Osteoarthritis of right knee: Qualifiers: Osteoarthritis type: primary Qualified Code(s): M17.11 - Unilateral primary osteoarthritis, right knee (3) Nicotine dependence, cigarettes, with other nicotine-induced disorders: Plan Keep dressing clean dry and intact Leave splint on and in place until follow-up visit Do not get splint wet, if it does contact the office for a office visit to have it changed No baths or soaks Nonweightbearing to operative extremity Utilize crutches/walker/as tolerated to continue with ambulation while maintaining restrictions Encourage knee range of motion as tolerated Ice and elevate as needed for pain and swelling Pain control Take Lovenox as prescribed for blood clot prevention Supplement with Citracal/vitamin D for bone health and healing PT/OT Internal medicine on board his primary and we appreciate medical management Finish postoperative antibiotics. Follow-up with Dr. Zaragoza in the office in 2 weeks Contact the office for any questions or concerns(i.e. fevers, increased drainage or redness around the incision site etc.)? Patient seen and evaluated. Patient's patient is stable for discharge from an orthopedic standpoint. Orthopedic surgery team will sign off at this time And we will follow-up peripherally. If there is any questions pertaining to patient's care feel free to contact Dr. Zaragoza. We appreciate you allowing us to partake in the care of patient. Attestations Medical Necessity Statement*: Ongoing care right tib-fib fracture. Coding Level of Care Code Acute Code for [facility] Diagnoses Fracture of right tibia and fibula S82.201A; S82.401A Osteoarthritis of right knee M17.11 Osteoarthritis type: primary Nicotine dependence, cigarettes, with other nicotine-induced disorders F17.218 Time Spent (min) 20
--- NOTE | 2022-11-15 09:00 | ANE.PACU2 ---
Inpatient post-anesthesia follow up: Airway intact: Yes Vital signs: Temperature 97.6 F Pulse Rate 74 Respiratory Rate 17 Blood Pressure 156/85 Pulse Oximetry 96 Oxygen Delivery Me thod Nasal Cannula Oxygen Flow Rate 4 Fraction of Inspir ed Oxygen Hydration adequate: Yes Nausea and vomiting: No Pain level: 2 Mental status: Baseline
[2022-11-15] MEDS: calcium carb-vit d 600mg/400unit 1 Tablet 1 EACH PO ×2 (09:05→16:57)
[2022-11-15] MEDS: iron polysaccharide complex 150 mg Capsule PO ×2 (09:05→16:57)
[2022-11-15] MEDS: oxyCODONE 5 mg IR Tab/Cap PO ×4 (09:05→21:03)
[2022-11-15] MEDS: docusate sodium 100 mg Capsule PO ×2 (09:05→16:57)
[2022-11-15] MEDS: multivitamin therapeutic Tablet 1 TAB PO (09:05)
--- NOTE | 2022-11-15 11:28 | PM.PN ---
Subjective Subjective: Reports she is feeling a lot better this morning. Her pain is well controlled. She has been tolerating her diet well. Vitals/I&O/Wt Last Vital Signs Temp 97.6 F 11/15/22 07:19 Pulse 74 11/15/22 07:19 Resp 17 11/15/22 07:19 BP 156/85 11/15/22 07:19 Pulse Ox 96 11/15/22 07:19 O2 Del Method Nasal Cannula 11/15/22 07:19 O2 Flow Rate 4 11/14/22 20:00 11/14/22 11/15/22 11/15/22 22:59 06:59 14:59 Intake Total 520 / 4070 1008.75 / 5078.75 360 / 360 Output Total 360 / 1035 500 / 1535 Balance 160 / 3035 508.75 / 3543.75 360 / 360 Weight last 48 hrs Weight 274 lb Physical Exam Narrative: General: Cooperative patient in no apparent distress. Well developed. HEENT: Normocephalic, Atraumatic. External ears normal. Nasal passages patent without drainage. MMM. Heart: RRR. Resp: LCTA. No respiratory distress, no use of accessory muscles. Abd: Soft, non-tender. Non-distended. Extremities: RLE with dressing in place. Cap refill is <2 seconds. Skin: No rash or lesions on exposed areas. Neuro: No focal motor or sensory loss. Urinary Catheter Management: Urbina: Cath Placed During This Visit: yes Urinary Catheter Date of Insertion: 11/14/22 Urinary Catheter Time of Insertion: 14:30 Data 11/15/22 04:30 11/15/22 04:30 A&P Assessment and plan (1) Fracture of right tibia and fibula: (2) Nicotine dependence, cigarettes, with other nicotine-induced disorders: Plan 57 yo F admitted for R tib/fib fracture fracture Status post ORIF of the right tib-fib. Continue inpatient monitoring. S/P ORIF day #2. Hgb stable after surgery. She is working with PT/OT currently. DME is being arranged. She is currently on 3L NC. Normally on RA at home. Discussed possibly discharge tomorrow. Would like to have PT work with her through the rest of today, and then we can arrange for discharge home tomorrow if oxygenation improves and she is able to get around Independently. Would benefit from HH and can arrange this prior to discharge. Nicotine patch. Lovenox for VTE ppx. Analgesia per ortho. Code Status: full IVF: LR at 75. DVT PPx: Lovenox GI PPx: Protonix ABx: Cefazolin Diet: Regular Discharge plan: Home. Attestations Medical Necessity Statement*: Continue inpatient management for post-surgical monitoring, PT/OT, DME, abx. Coding Level of Care Code Acute Code for Chg Fwd Straight Forward/Low MDM includes number and complexity of problems actively addressed during encounter, amount and/or complexity of data reviewed/ordered and described risk of complication, morbidity or mortality of management as documented Diagnoses Fracture of right tibia and fibula S82.201A; S82.401A Nicotine dependence, cigarettes, with other nicotine-induced disorders F17.218
[2022-11-15] MEDS: enoxaparin 30 mg/0.3 mL Syringe SUBCUT (12:46)
[2022-11-15] MEDS: nicotine 14 mg Patch 1 PATCH TRANSDERMA (12:49)
[2022-11-15] MEDS: chlorhexidine gluconate 0.12% Btl 473 mL 30 ML MUCOUS MEM ×2 (16:58→21:05)
[2022-11-16] VITALS (7 sets, daily range): BP systolic 117–121; BP diastolic 68–76; PULSE 56–77; RESP 16–20; TEMP 36.8–36.9; O2SAT 95–97
[2022-11-16] MEDS: oxyCODONE 5 mg IR Tab/Cap PO ×5 (02:32→21:11)
[2022-11-16] MEDS: acetaminophen 500 mg Tablet 1000 MG PO ×3 (04:52→19:37)
[2022-11-16 05:05] LABS: Basophils % 0.5 %; Eosinophils # 0.3 10^3/uL (0.0-0.8); Eosinophils % 3.4 %; Hematocrit 37.6 % (36-47); Lymphocytes # 2.2 10^3/uL (0.8-4.8); Lymphocytes % 29.7 %; Mean Corpuscular HGB Conc 31.1 g/dL (30-55); Mean Corpuscular Hemoglobin 30.2 pg (27-33); Mean Corpuscular Volume 97.2 fl (85-98); Mean Platelet Volume 10.3 fL (7.4-10.4); Monocytes # 0.7 10^3/uL (0.2-0.9); Monocytes % 10.1 %; Neutrophils % 55.9 %; Nucleated Red Blood Cells % 0 %; Platelet Count 200 10^3/cmm (157-399); Red Blood Count 3.87 10^6/uL (3.85-5.65); White Blood Count 7.34 10^3/uL (3.29-11.43)
[2022-11-16 05:27] LABS: Anion Gap 9.4 (5-19); Blood Urea Nitrogen 14 mg/dL (6-20); Calcium 8.8 mg/dL (8.5-10.5); Carbon Dioxide 32 mmol/L (22-29); Chloride 104 mmol/L (98-107); Glomerular Filtration Rate 103.4 mL/min (90-130); Glucose 127 mg/dL (65-115); Osmolality Calculated 294 mOsm/kg (285-295); Potassium 4.4 mmol/L (3.5-5.1); Sodium 141 mmol/L (136-145)
[2022-11-16] MEDS: nicotine 14 mg Patch 1 PATCH TRANSDERMA (07:21)
[2022-11-16] MEDS: enoxaparin 30 mg/0.3 mL Syringe SUBCUT (07:21)
[2022-11-16] MEDS: multivitamin therapeutic Tablet 1 TAB PO (07:22)
[2022-11-16] MEDS: iron polysaccharide complex 150 mg Capsule PO ×2 (07:23→17:05)
[2022-11-16] MEDS: docusate sodium 100 mg Capsule PO ×2 (07:23→17:05)
[2022-11-16] MEDS: chlorhexidine gluconate 0.12% Btl 473 mL 30 ML MUCOUS MEM ×3 (07:23→19:37)
[2022-11-16] MEDS: calcium carb-vit d 600mg/400unit 1 Tablet 1 EACH PO ×2 (07:23→17:05)
--- NOTE | 2022-11-16 08:35 | CT_ITS ---
WS: [id number] CT CHEST ANGIOGRAPHY WITH REFORMATS HISTORY: sob, hypoxia TECHNIQUE: Contiguous axial images are obtained through the chest during arterial injection of intrav enous contrast. Images are reconstructed to evaluate the pulmonary arteries. MIP imaging also reviewe d. All CT scans at [facility] use at least one of these dose optimization techniques: automat ed exposure control; mA and/or kV adjustment per patient size (includes targeted exams where dose is matched to clinical indication); or iterative reconstruction. CONTRAST: Omnipaque 350; 100 mL IV. DLP: 497.56 mGy.cm COMPARISON: None available. Adequate but limited opacification of the pulmonary arteries. No pulmonary emboli are identified. Pul monary artery size is normal. Mild atherosclerosis aorta. No aneurysm. Normal size heart. No pericard ial or pleural effusions. There are a few benign calcified granulomata. Mild bilateral anterior upper lobe subsolid opacifications. No pneumothorax. No mediastinal or hilar adenopathy. Small hiatal hernia Mild LEFT adrenal enlargement and changes of an adenoma. Subcentimeter thyroid nodules. Compression fractures T2, T3 and T4 without retropulsion. IMPRESSION: 1. No pulmonary embolism. 2. Subsegmental, subsolid opacifications in the anterior upper lobes. May be posttraumatic. There is no associated pneumothorax or soft tissue abnormality. 3. LEFT adrenal adenoma. 4. Mild T2, T3 and T4 compression fractures.
--- NOTE | 2022-11-16 10:32 | ECG_ITS ---
[facility] Test Date: 2022-11-16 Pat Name: Maria D Russ Department: Room: 267 Gender: Female Marketing Professor: : 1965 Requested By: Franck Garcia Order Number: [id number] Reading MD: Mukesh Ferrer M.D. Measurements Intervals [place] Rate: 79 P: 38 NV: 183 QRS: -20 QRSD: 81 T: 21 QT: 359 QTc: 413 Interpretive Statements SINUS RHYTHM LOW QRS VOLTAGE IN PRECORDIAL LEADS [QRS DEFLECTION < 1.0 mV IN CHEST LEADS] ANTERIOR MYOCARDIAL INFARCTION , PROBABLY OLD [40+ ms Q WAVE AND/OR ST/T ABNORMALITY IN V3/V4] INFERIOR MYOCARDIAL INFARCTION , PROBABLY OLD [40+ ms Q WAVE AND/OR ST/T ABNORMALITY IN II/aVF] No previous ECG available for comparison Electronically Signed On 11-16-2022 11:32:00 CDT by Mukesh Ferrer M.D. [id number]
[2022-11-16 10:54] LABS: NT Pro B Type Natriuretic Pept 314 pg/mL (0-125)
[2022-11-16] MEDS: iohexol 350 mg/mL 500 mL Btl (per mL) IV (11:05)
[2022-11-16 11:06] LABS: Troponin(5th) Baseline 9 ng/L (0-10)
--- NOTE | 2022-11-16 13:04 | ECG_ITS ---
[facility] Test Date: 2022-11-16 Pat Name: Maria D Russ Department: Room: 267 Gender: Female Ward Secretary: : 1965 Requested By: Franck Garcia Order Number: [id number] Jaelyn MD: Mukesh Ferrer M.D. Measurements Intervals [place] Rate: 73 P: 58 [place]: 171 QRS: -25 QRSD: 86 T: 28 QT: 367 QTc: 407 Interpretive Statements SINUS RHYTHM LOW QRS VOLTAGE IN PRECORDIAL LEADS [QRS DEFLECTION < 1.0 mV IN CHEST LEADS] INFERIOR MYOCARDIAL INFARCTION , PROBABLY OLD [40+ ms Q WAVE AND/OR ST/T ABNORMALITY IN II/aVF] Compared to ECG 11/16/2022 10:32:50 No significant changes Electronically Signed On 11-16-2022 20:42:03 CDT by Mukesh Ferrer M.D. [id number]
[2022-11-16 13:14] LABS: Troponin 5 2HR 8.67 ng/L (0-10); Troponin 5 2HR Delta -0.33 ABS# (0-10)
--- NOTE | 2022-11-16 15:24 | ECG_ITS ---
[facility] Test Date: 2022-11-16 Pat Name: Maria D Russ Department: Room: 267 Gender: Female Automation And Controls Supervisor: : 1965 Requested By: Franck Garcia Order Number: [id number] Jaelyn MD: Mukesh Ferrer M.D. Measurements Intervals [place] Rate: 75 P: 42 [place]: 179 QRS: -20 QRSD: 83 T: 17 QT: 376 QTc: 421 Interpretive Statements SINUS RHYTHM LOW QRS VOLTAGE IN PRECORDIAL LEADS [QRS DEFLECTION < 1.0 mV IN CHEST LEADS] ANTERIOR MYOCARDIAL INFARCTION , PROBABLY OLD [40+ ms Q WAVE AND/OR ST/T ABNORMALITY IN V3/V4] INFERIOR MYOCARDIAL INFARCTION , PROBABLY OLD [40+ ms Q WAVE AND/OR ST/T ABNORMALITY IN II/aVF] Compared to ECG 11/16/2022 13:04:14 No significant changes Electronically Signed On 11-16-2022 20:39:31 CDT by Mukesh Ferrer M.D. [id number]
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
--- NOTE | 2022-11-16 22:09 | P.PN_ITS ---
Subjective Subjective: Patient seen and examined this afternoon. Patient is recovering well. She is gotten up and work with therapy. Maintaining nonweightbearing to the right lower extremity. Encourage knee range of motion. She is working on [facility] facility/rehab facility placement upon discharge. Dressings clean dry and intact. Pain controlled medications. No issues overnight. Vitals/I&O/Wt Last Vital Signs Temp 98.2 F 11/16/22 19:30 Pulse 77 11/16/22 19:30 Resp 16 11/16/22 21:11 BP 121/76 11/16/22 19:30 Pulse Ox 97 11/16/22 19:30 O2 Del Method Nasal Cannula 11/15/22 16:14 O2 Flow Rate 2 11/16/22 08:00 11/16/22 11/16/22 11/16/22 06:59 14:59 22:59 Intake Total 240 / 1560 340 / 340 360 / 700 Balance 240 / 1560 340 / 340 360 / 700 Physical Exam Narrative: Right lower leg?patient's posterior leg splint is dry and intact. Toes are warm and well perfused and she is able to wiggle toes. Cap refill under 2 seconds. superficial and deep peroneal nerve sensation to foot intact. The rest of lower leg exam is limited due to splint. Patient is able to tolerate gentle knee range of motion. Mild joint effusion noted. Dressings to the knee are clean dry and intact. Const: COMMON NORMALS: no acute distress, healthy appearing and alert Resp: COMMON NORMALS: normal respiratory effort Neuro: SENSORIUM/ORIENTATION: Yes alert Skin: GENERAL SKIN EXAM: dry skin Urinary Catheter Management: [place]: Cath Placed During This Visit: yes Urinary Catheter Date of Insertion: 11/14/22 Urinary Catheter Time of Insertion: 14:30 Data 11/16/22 04:14 11/16/22 04:14 A&P Assessment and plan (1) Fracture of right tibia and fibula: (2) Osteoarthritis of right knee: Qualifiers: Osteoarthritis type: primary Qualified Code(s): M17.11 - Unilateral primary osteoarthritis, right knee (3) Nicotine dependence, cigarettes, with other nicotine-induced disorders: Plan Keep dressing clean dry and intact Leave splint on and in place until follow-up visit Do not get splint wet, if it does contact the office for a office visit to have it changed No baths or soaks Nonweightbearing to operative extremity Utilize crutches/walker/as tolerated to continue with ambulation while maintaining restrictions Encourage knee range of motion as tolerated Ice and elevate as needed for pain and swelling Pain control Take Lovenox as prescribed for blood clot prevention Supplement with Citracal/vitamin D for bone health and healing PT/OT Internal medicine on board his primary and we appreciate medical management Finish postoperative antibiotics. Follow-up with Dr. Zargaoza in the office in 2 weeks Contact the office for any questions or concerns(i.e. fevers, increased drainage or redness around the incision site etc.) Patient seen and evaluated. Patient's patient is stable for discharge from an orthopedic standpoint. Orthopedic surgery team will sign off at this time And we will follow-up peripherally. If there is any questions pertaining to patient's care feel free to contact Dr. Zaragoza. We appreciate you allowing us to partake in the care of patient. Attestations Medical Necessity Statement*: Ongoing care right tib-fib fracture Coding Level of Care Code Acute Code for [facility] Fwd Diagnoses Fracture of right tibia and fibula S82.201A; S82.401A Osteoarthritis of right knee M17.11 Osteoarthritis type: primary Nicotine dependence, cigarettes, with other nicotine-induced disorders F17.218 Time Spent (min) 15
[2022-11-17] VITALS (9 sets, daily range): BP systolic 118–145; BP diastolic 67–75; PULSE 67–115; RESP 16–19; TEMP 36.7–36.8; O2SAT 94–97
[2022-11-17] MEDS: oxyCODONE 5 mg IR Tab/Cap PO ×5 (02:20→20:05)
[2022-11-17] MEDS: acetaminophen 500 mg Tablet 1000 MG PO ×3 (03:34→20:05)
[2022-11-17] MEDS: morphine 4 mg/mL SDV 1 mL 2 MG IVP (05:45)
[2022-11-17 06:06] LABS: Basophils % 0.4 %; Eosinophils # 0.3 10^3/uL (0.0-0.8); Hematocrit 38.1 % (36-47); Lymphocytes # 2.1 10^3/uL (0.8-4.8); Lymphocytes % 30.6 %; Mean Corpuscular HGB Conc 30.4 g/dL (30-55); Mean Corpuscular Hemoglobin 30.2 pg (27-33); Mean Corpuscular Volume 99.2 fl (85-98); Mean Platelet Volume 10.5 fL (7.4-10.4); Monocytes # 0.7 10^3/uL (0.2-0.9); Monocytes % 10.3 %; Neutrophils # 3.63 10^3/uL (1.8-7.7); Neutrophils % 54.3 %; Nucleated Red Blood Cells % 0 %; Platelet Count 215 10^3/cmm (157-399); Red Blood Count 3.84 10^6/uL (3.85-5.65); Red Cell Distribution Width 15.9 % (12.1-15.1)
[2022-11-17 06:31] LABS: Blood Urea Nitrogen 14 mg/dL (6-20); Calcium 8.9 mg/dL (8.5-10.5); Carbon Dioxide 32 mmol/L (22-29); Chloride 99 mmol/L (98-107); Creatinine Clr Calc Pharmacy 124.7426; Glomerular Filtration Rate 86.6 mL/min (90-130); Glucose 118 mg/dL (65-115); Osmolality Calculated 288 mOsm/kg (285-295); Sodium 138 mmol/L (136-145)
[2022-11-17 06:39] LABS: Anion Gap 11.4 (5-19); Potassium 4.4 mmol/L (3.5-5.1)
[2022-11-17 07:03] LABS: Slide Review Slide Review Perform
[2022-11-17] MEDS: multivitamin therapeutic Tablet 1 TAB PO (10:19)
[2022-11-17] MEDS: calcium carb-vit d 600mg/400unit 1 Tablet 1 EACH PO ×2 (10:20→17:23)
[2022-11-17] MEDS: iron polysaccharide complex 150 mg Capsule PO ×2 (10:20→17:23)
[2022-11-17] MEDS: docusate sodium 100 mg Capsule PO ×2 (10:20→17:23)
[2022-11-17] MEDS: enoxaparin 30 mg/0.3 mL Syringe SUBCUT (10:20)
[2022-11-17] MEDS: chlorhexidine gluconate 0.12% Btl 473 mL 30 ML MUCOUS MEM ×4 (10:20→20:07)
[2022-11-17] MEDS: nicotine 14 mg Patch 1 PATCH TRANSDERMA (10:21)
--- NOTE | 2022-11-17 11:40 | P.PN_ITS ---
Vitals/I&O/Wt Last Vital Signs Temp 98.2 F 11/17/22 07:05 Pulse 115 H 11/17/22 07:55 Resp 17 11/17/22 10:21 BP 127/72 11/17/22 07:05 Pulse Ox 96 11/17/22 07:55 O2 Del Method Nasal Cannula 11/17/22 07:55 O2 Flow Rate 1 11/17/22 07:55 11/16/22 11/17/22 11/17/22 22:59 06:59 14:59 Intake Total 360 / 700 360 / 360 Balance 360 / 700 360 / 360 Physical Exam Const: COMMON NORMALS: no acute distress and patient oriented x3 Resp: COMMON NORMALS: normal respiratory effort, No retractions, No use of accessory muscles and clear to auscultation bilaterally AUSCULTATION: clear to auscultation bilaterally Cardio: COMMON NORMALS: regular rate, regular rhythm, S1 normal heart sound present and S2 normal heart sound present RATE: regular rate RHYTHM: regular rhythm HEART SOUNDS: S1 normal heart sound present and S2 normal heart sound present GI: COMMON NORMALS: Normal to inspection, nondistended, normoactive bowel sounds present and non-tender Extremity: COMMON NORMALS: no pedal edema NARRATIVE EXTREMITY EXAM: RLE in a boot Neuro: COMMON NORMALS: patient oriented x3 Psych: COMMON NORMALS: mental status grossly normal Urinary Catheter Management: [place]: Cath Placed During This Visit: yes Urinary Catheter Date of Insertion: 11/14/22 Urinary Catheter Time of Insertion: 14:30 Data 11/17/22 05:47 11/17/22 05:47 A&P Assessment and plan (1) Fracture of right tibia and fibula: (2) Nicotine dependence, cigarettes, with other nicotine-induced disorders: (3) Nasal septal deviation: (4) Hypoxia: (5) History of COPD: Plan 57 yo F admitted for R tib/fib fracture fracture Status post ORIF of the right tib-fib. Continue inpatient monitoring. S/P ORIF. She is working with PT/OT currently. d. She is currently on 1L NC. Normally on RA at home. Does have a history of COPD, CTA 1. No pulmonary embolism. 2. Subsegmental, subsolid opacifications in the anterior upper lobes. May be posttraumatic. There is no associated pneumothorax or soft tissue abnormality. 3. LEFT adrenal adenoma. 4. Mild T2, T3 and T4 compression fractures. Would benefit from HH and can arrange this prior to discharge. Nicotine patch. Lovenox for VTE ppx. Analgesia per ortho. Code Status: full DVT PPx: Lovenox GI PPx: Protonix ABx: Cefazolin Diet: Regular Discharge plan: Home. Attestations Medical Necessity Statement*: Plan for today, up out of bed, PT OT, will review lung CT images with pulmonary Diagnoses Fracture of right tibia and fibula S82.201A; S82.401A Nicotine dependence, cigarettes, with other nicotine-induced disorders F17.218 Nasal septal deviation J34.2 Hypoxia R09.02 History of COPD Z87.09
[2022-11-17] MEDS: polyethylene glycol 3350 Pkt 17 gm PO (14:27)
[2022-11-18] VITALS (8 sets, daily range): BP systolic 125–161; BP diastolic 66–87; PULSE 64–87; RESP 16–20; TEMP 36.4–37; O2SAT 91–94
[2022-11-18] MEDS: oxyCODONE 5 mg IR Tab/Cap PO ×2 (00:42→19:26)
[2022-11-18] MEDS: ketorolac 30 mg/mL INJ 15 MG IVP (04:17)
[2022-11-18] MEDS: acetaminophen 500 mg Tablet 1000 MG PO ×3 (04:17→19:26)
[2022-11-18] MEDS: calcium carb-vit d 600mg/400unit 1 Tablet 1 EACH PO ×2 (07:46→17:23)
[2022-11-18] MEDS: docusate sodium 100 mg Capsule PO ×2 (07:46→17:23)
[2022-11-18] MEDS: iron polysaccharide complex 150 mg Capsule PO ×2 (07:46→17:23)
[2022-11-18] MEDS: chlorhexidine gluconate 0.12% Btl 473 mL 30 ML MUCOUS MEM ×3 (07:47→17:23)
[2022-11-18] MEDS: enoxaparin 40 mg/0.4 mL Syringe SUBCUT (07:47)
[2022-11-18] MEDS: nicotine 14 mg Patch 1 PATCH TRANSDERMA (07:47)
[2022-11-18] MEDS: multivitamin therapeutic Tablet 1 TAB PO (07:48)
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
== END 2022-11-18 20:13 | DRG 494 ==
PROVIDERS: Student in an Organized Health Care Education/Training Program; Admitting Provider Family Medicine; Visit Provider Family Medicine
PROC: 0QSK04Z Reposition Left Fibula with Internal Fixation Device, Open Approach (ICD-10-PCS; CPT 27828; principal; 2022-11-14 08:00)
DX: S82.51XA Displaced fracture of medial malleolus of right tibia, initial encounter for closed fracture (principal); S82.831A Other fracture of upper and lower end of right fibula, initial encounter for closed fracture; W01.0XXA Fall on same level from slipping, tripping and stumbling without subsequent striking against object, initial encounter; F17.210 Nicotine dependence, cigarettes, uncomplicated; J34.2 Deviated nasal septum; J44.9 Chronic obstructive pulmonary disease, unspecified; Z87.820 Personal history of traumatic brain injury; Z79.51 Long term (current) use of inhaled steroids; M17.11 Unilateral primary osteoarthritis, right knee
CPT/HCPCS: 36415; 51702; 71275; 73560; 73590; 73610; 73700; 76000; 80048; 80053; 83735; 83880; 84484; 85025; 86850; 86900; 93005; 96372; 97110; 97161; 97166; 97530; 97535; A9281; C1713 ×2; J0360; J0690; J1100; J1170; J1650; J1885; J2250; J2270; J2371; J2405; J2704; J3010; J7030; J7120; Q9967

== ENCOUNTER → 2022-12-03 11:46 | Outpatient (BNVA) | payer MEDICAID, SELFPAY | PROVIDERS: Visit Provider Student in an Organized Health Care Education/Training Program | DX: S82.201A Unspecified fracture of shaft of right tibia, initial encounter for closed fracture (principal); S82.401A Unspecified fracture of shaft of right fibula, initial encounter for closed fracture; X58.XXXA Exposure to other specified factors, initial encounter | CPT/HCPCS: 73590 ==

== ENCOUNTER → 2023-01-05 13:49 | Outpatient (BNVA) | payer MEDICAID, SELFPAY | PROVIDERS: Visit Provider Student in an Organized Health Care Education/Training Program | DX: S82.201D Unspecified fracture of shaft of right tibia, subsequent encounter for closed fracture with routine healing; S82.401D Unspecified fracture of shaft of right fibula, subsequent encounter for closed fracture with routine healing; X58.XXXD Exposure to other specified factors, subsequent encounter | CPT/HCPCS: 73590; 99024; 99213 ==

== ENCOUNTER 2023-01-24 20:13 | Emergency (ER) | payer MEDICAID, SELFPAY ==
[2023-01-24 20:14] VITALS: BP 157/117; PULSE 78; RESP 18; TEMP 36.7; O2SAT 97; BMI 41.0
--- NOTE | 2023-01-24 20:41 | XRR_ITS ---
PROCEDURE INFORMATION: Exam: XR Left Tibia and Fibula Exam date and time: 01/24/2023 8:53 PM Age: 57 years old Clinical indication: Other: Drainage; Prior surgery; Surgery date: 1-6 months; Surgery type: Tib/fib fixation nov 2022; Patient HX: Patient C/O drainge from incision site; Additional info: Wound drainage op site TECHNIQUE: Imaging protocol: Radiologic exam of the left tibia and fibula. Views: 2 views. COMPARISON: No relevant prior studies available. FINDINGS: Bones/joints: Distal tibial chronic partially healed fracture with some cortical irregularity/lucency along the distal medial tibial diaphysis in the region of the fracture, may reflect posttraumatic changes, however, given history of drainage, infection is of concern, nuclear medicine bone scan and/or MRI could potentially further characterize this area. Moderate to severe tricompartmental osteoarthritis of the knee. Distal fibular orthopedic plate and tibial orthopedic nidia seen in place. Soft tissues: Normal. XR/XR tibia fibula RT 2V [id number] IMPRESSION: 1. Distal tibial chronic partially healed fracture with some cortical irregularity/lucency along the distal medial tibial diaphysis in the region of the fracture, may reflect posttraumatic changes, however, given history of drainage, infection is of concern, nuclear medicine bone scan and/or MRI could potentially further characterize this area. 2. Moderate to severe tricompartmental osteoarthritis of the knee. 3. Distal fibular orthopedic plate and tibial orthopedic nidia seen in place.
[2023-01-24 21:02] LABS: Erythrocyte Sedimentation Rate 13 mm/hr (0-15)
[2023-01-24 21:04] LABS: Basophils # 0.1 10^3/uL (0.0-0.1); Basophils % 0.6 %; Eosinophils # 0.3 10^3/uL (0.0-0.8); Eosinophils % 3.9 %; Hematocrit 45.8 % (36-47); Lymphocytes # 3.4 10^3/uL (0.8-4.8); Lymphocytes % 37.9 %; Mean Corpuscular HGB Conc 31.7 g/dL (30-55); Mean Corpuscular Hemoglobin 29.4 pg (27-33); Mean Corpuscular Volume 92.9 fl (85-98); Mean Platelet Volume 9.8 fL (7.4-10.4); Monocytes # 0.8 10^3/uL (0.2-0.9); Monocytes % 8.8 %; Neutrophils # 4.29 10^3/uL (1.8-7.7); Neutrophils % 48.6 %; Nucleated Red Blood Cells % 0 %; Platelet Count 349 10^3/cmm (157-399); Red Blood Count 4.93 10^6/uL (3.85-5.65); Red Cell Distribution Width 14.5 % (12.1-15.1); White Blood Count 8.83 10^3/uL (3.29-11.43)
--- NOTE | 2023-01-24 21:33 | ED_ITS ---
HPI - General Adult General: Stated complaint: WOUND DRAINING Time Seen by Provider: 01/24/23 20:19 History of Present Illness: 57-year-old female who had ORIF of her right distal tibia and fibula fractures on 12/15. She notes that there has been increased redness and swelling for the p ast several days. Today the lateral wound started to drain. She has not had fever. Some increased pain. She notes that the ankle has been swollen since the injury. Associated symptoms: Reports rash; Deny chest pain, dyspnea or vomiting Review of Systems Const: Denies: fever(s) Card: Denies: chest pain Resp: Denies: dyspnea GI: Denies: abdominal pain or vomiting Skin/Breast: Reports: rash and surgical incision [facility] ED PFSH: Medical History History of COPD History of traumatic brain injury Nasal bone fracture Surgical History History of tracheostomy S/P percutaneous endoscopic gastrostomy (PEG) tube placement Physical Exam Const: COMMON NORMALS: no acute distress GENERAL APPEARANCE: cooperative; not ill appearing and not frail appearing HENMT: COMMON NORMALS: normocephalic, atraumatic and Normal external nose present HEAD & SCALP: normocephalic and atraumatic FACE & SINUS: normal facial exam and face symmetric NOSE: Normal external nose present Eye: COMMON NORMALS: Equal, round and reactive pupils present and EOMs intact bilaterally PUPIL: Yes Equal, round and reactive pupils present Neck/C-Spine: GENERAL: Yes trachea midline Chest: CHEST: Yes Symmetrical chest wall rise Resp: COMMON NORMALS: normal respiratory effort, No retractions, No use of accessory muscles and clear to auscultation bilaterally AUSCULTATION: clear to auscultation bilaterally Cardio: COMMON NORMALS: regular rate and regular rhythm RATE: regular rate RHYTHM: regular rhythm GI: COMMON NORMALS: Normal to inspection, nondistended, normoactive bowel sounds present Extremity: NARRATIVE EXTREMITY EXAM: Examination the right lower extremity reveals some redness and swelling. There is a tiny opening at the inferior most portion of the lateral ankle incision with purulent drainage. There is no fluctuance. No streaking redness. It is not overly warm. Neuro: [place] COMA SCALE: document GCS findings [place] coma scale eye opening: Spontaneous [place] coma scale verbal response: Orientated [place] coma scale motor response: Obey commands [place] coma scale total score: 15 SENSORY EXAM: Yes extremities (intact) Psych: COMMON NORMALS: speech normal SPEECH: Yes normal speech Skin: COMMON NORMALS: no rashes or lesions noted GENERAL SKIN EXAM: no rashes or lesions noted Course Vital Signs: Vital signs: Vital Signs Temperature 98.1 F 01/24/23 20:14 Pulse Rate 94 01/24/23 21:59 Respiratory Rate 18 01/24/23 21:59 Blood Pressure 172/107 01/24/23 21:59 Pulse Oximetry 95 01/24/23 21:59 Oxygen Delivery Me thod Room Air 01/24/23 21:59 MDM - General Adult Medical Decision Making CBC is normal. She is afebrile. ESR is 13. CRP is 13 as well. CMP is negative. X-ray shows distal tibia chronically healed fracture with some caryl ical irregularity lucency at the distal medial tibial diaphysis. Her drainage is from the lateral side, not the medial side. We will cover with antibiotics. We will have her follow-up with orthopedics this week. She will go back in her cam boot. Localized wound care. Return for fever, vomiting, worsening pain, other symptoms. Lab Data 01/24/23 20:46 01/24/23 20:46 Radiology Impressions Tibia/Fibula X-Ray 01/24/23 20:41 IMPRESSION: 1. Distal tibial chronic partially healed fracture with some cortical irregularity/lucency along the distal medial tibial diaphysis in the region of the fracture, may reflect posttraumatic changes, however, given history of drainage, infection is of concern, nuclear medicine bone scan and/or MRI could potentially further characterize this area. 2. Moderate to severe tricompartmental osteoarthritis of the knee. 3. Distal fibular orthopedic plate and tibial orthopedic nidia seen in place. Laboratory Results WBC 8.83 10^3/uL (3.29-11.43) 01/24/23 20:46 RBC 4.93 10^6/uL (3.85-5.65) 01/24/23 20:46 Hgb 14.50 g/dL (11.27-16.99) 01/24/23 20:46 Hct 45.8 % (36-47) 01/24/23 20:46 MCV 92.9 fl (85-98) 01/24/23 20:46 MCH 29.4 pg (27-33) 01/24/23 20:46 MCHC 31.7 g/dL (30-55) 01/24/23 20:46 RDW 14.5 % (12.1-15.1) 01/24/23 20:46 Plt Count 349 10^3/cmm (157-399) 01/24/23 20:46 MPV 9.8 fL (7.4-10.4) 01/24/23 20:46 Neut % (Auto) 48.6 % 01/24/23 20:46 Lymph % (Auto) 37.9 % 01/24/23 20:46 Cole % (Auto) 8.8 % 01/24/23 20:46 Eos % (Auto) 3.9 % 01/24/23 20:46 Baso % (Auto) 0.6 % 01/24/23 20:46 Neut # (Auto) 4.29 10^3/uL (1.8-7.7) 01/24/23 20:46 Lymph # (Auto) 3.4 10^3/uL (0.8-4.8) 01/24/23 20:46 Cole # (Auto) 0.8 10^3/uL (0.2-0.9) 01/24/23 20:46 Eos # (Auto) 0.3 10^3/uL (0.0-0.8) 01/24/23 20:46 Baso # (Auto) 0.1 10^3/uL (0.0-0.1) 01/24/23 20:46 Nucleated RBC % (auto) 0 % 01/24/23 20:46 Nucleated RBCs # 0.0 /100WBC 01/24/23 20:46 ESR 13 mm/hr (0-15) 01/24/23 20:46 Sodium 140 mmol/L (136-145) 01/24/23 20:46 Potassium 4.1 mmol/L (3.5-5.1) 01/24/23 20:46 Chloride 100 mmol/L (98-107) 01/24/23 20:46 Carbon Dioxide 31 mmol/L (22-29) H 01/24/23 20:46 Anion Gap 13.1 (5-19) 01/24/23 20:46 BUN 19 mg/dL (6-20) 01/24/23 20:46 Creatinine 0.9 mg/dL (0.5-0.9) 01/24/23 20:46 GFR Calculation 64.8 mL/min (90-130) L 01/24/23 20:46 Glucose 101 mg/dL (65-115) 01/24/23 20:46 Calculated Osmolality 292 mOsm/kg (285-295) 01/24/23 20:46 Calcium 9.2 mg/dL (8.5-10.5) 01/24/23 20:46 Total Bilirubin 0.2 mg/dL (0.15-1.2) 01/24/23 20:46 AST 12 U/L (0-32) 01/24/23 20:46 ALT 18 U/L (0-33) 01/24/23 20:46 Alkaline Phosphatase 120 U/L (35-105) H 01/24/23 20:46 C-Reactive Protein 13.0 mg/L (0.0-4.9) H 01/24/23 20:46 Total Protein 7.5 g/dL (6.6-8.7) 01/24/23 20:46 Albumin 4.1 g/dL (3.5-5.2) 01/24/23 20:46 Globulin 3.4 g/dL (1.3-4.6) 01/24/23 20:46 All radiology interpretation(s) finalized by discharge Discharge Plan Discharge Patient Disposition: Home Clinical Impression: Cellulitis of leg without foot, right Condition: Stable Prescriptions: New Bactrim DS 800-160 mg tablet 1 tab PO BID 14 Days Qty: 28 0RF mupirocin 2 % ointment 1 applic topical BID Qty: 50 0RF No Action aspirin 325 mg tablet,delayed release (DR/EC) 325 mg PO DAILY Qty: 14 0RF (DME) cam boot See Rx Instructions .Route .MEDSUPPLY Qty: 1 0RF Rx Instructions: As directed HOME latanoprost 0.005 % drops 1 drp ophthalmic (eye) BEDTIME cetirizine 10 mg tablet 10 mg PO DAILY PRN (Reason: Allergic Symptoms) pantoprazole 40 mg tablet,delayed release (DR/EC) 40 mg PO DAILY PRN (Reason: Acid Reflux) Ventolin HFA 90 mcg/actuation HFA aerosol inhaler 2 inh INHALATION Q4H PRN (Reason: Shortness Of Breath) fluticasone propionate 50 mcg/actuation spray,suspension 1 - 2 spray INTRANASAL DAILY PRN (Reason: Allergic Symptoms) meloxicam 15 mg tablet 15 mg PO DAILY PRN (Reason: pain) 30 Days Qty: 30 0RF Discharge Orders: Discharge ED (Routine); Ordered 01/24/23 Ordered By: Tylor Kim Referrals: Jd Zaragoza PA [Physician [facility]] - 1-3 days Patient Instructions: Cellulitis (ED), Opioid Safety, Pain Management Activity Restrictions/Additional Instructions: Placed ointment on area, and cover twice daily. Clean with soap and water. Do not soak. Antibiotics as directed. Call the orthopedic clinic tomorrow for an outpatient follow-up appointment this week and wound check. Return in the meantime for any problems. Coding Level of Care Code ED Mental Health Program Manager for Niurka Saini
[2023-01-24 21:34] LABS: Alanine Aminotransferase 18 U/L (0-33); Albumin Level 4.1 g/dL (3.5-5.2); Alkaline Phosphatase 120 U/L (35-105); Anion Gap 13.1 (5-19); Aspartate Amino Transferase 12 U/L (0-32); Blood Urea Nitrogen 19 mg/dL (6-20); Calcium 9.2 mg/dL (8.5-10.5); Carbon Dioxide 31 mmol/L (22-29); Chloride 100 mmol/L (98-107); Globulin 3.4 g/dL (1.3-4.6); Glomerular Filtration Rate 64.8 mL/min (90-130); Glucose 101 mg/dL (65-115); Osmolality Calculated 292 mOsm/kg (285-295); Potassium 4.1 mmol/L (3.5-5.1); Sodium 140 mmol/L (136-145); Total Bilirubin 0.2 mg/dL (0.15-1.2); Total Protein 7.5 g/dL (6.6-8.7)
[2023-01-24 21:59] VITALS: BP 172/107; PULSE 94; RESP 18; O2SAT 95
[2023-01-24] MEDS: sulfamethoxazole-trimeth DS 160-800 mg Tablet 2 TAB PO (22:38)
--- NOTE | 2023-01-24 22:41 | PC.NURSE ---
RLL wound cleaned with saline and peroxide, bandaged with gauze and kerlix per Dr Kim's orders. Patient tolerated well.
== END 2023-01-24 23:23 | disposition home or self-care (01) ==
PROVIDERS: Emergency Provider Emergency Medicine
DX: L03.115 Cellulitis of right lower limb (principal); Z79.82 Long term (current) use of aspirin; J44.9 Chronic obstructive pulmonary disease, unspecified
CPT/HCPCS: 36415; 73590; 80053; 85025; 85651; 86140; 99284

== ENCOUNTER → 2023-02-02 15:21 | Outpatient (BNVA) | payer MEDICAID, SELFPAY | PROVIDERS: Visit Provider Physician Assistant | DX: S82.201D Unspecified fracture of shaft of right tibia, subsequent encounter for closed fracture with routine healing; S82.401D Unspecified fracture of shaft of right fibula, subsequent encounter for closed fracture with routine healing; X58.XXXD Exposure to other specified factors, subsequent encounter; Z98.890 Other specified postprocedural states | CPT/HCPCS: 73590 ==

== ENCOUNTER 2023-02-02 16:30 | Outpatient (CLI) | payer MEDICAID, SELFPAY | END 2023-02-02 16:31 | disposition home or self-care (01) | LOC: SPT 16:31 | PROVIDERS: Visit Provider Physician Assistant | DX: Z46.89 Encounter for fitting and adjustment of other specified devices (principal); S82.201D Unspecified fracture of shaft of right tibia, subsequent encounter for closed fracture with routine healing; X58.XXXD Exposure to other specified factors, subsequent encounter | CPT/HCPCS: 97760; L1902 ==

== ENCOUNTER → 2023-03-23 13:16 | Outpatient (BNVA) | payer MEDICAID, SELFPAY | PROVIDERS: Visit Provider Physician Assistant | DX: Z98.890 Other specified postprocedural states (principal); S82.201D Unspecified fracture of shaft of right tibia, subsequent encounter for closed fracture with routine healing; S82.401D Unspecified fracture of shaft of right fibula, subsequent encounter for closed fracture with routine healing; X58.XXXD Exposure to other specified factors, subsequent encounter | CPT/HCPCS: 73590 ==

== ENCOUNTER → 2023-05-12 08:12 | Outpatient (BNVA) | payer MEDICAID, SELFPAY | PROVIDERS: Visit Provider Thoracic Surgery (Cardiothoracic Vascular Surgery) | DX: I96 Gangrene, not elsewhere classified (principal); T81.31XD Disruption of external operation (surgical) wound, not elsewhere classified, subsequent encounter; Y83.8 Other surgical procedures as the cause of abnormal reaction of the patient, or of later complication, without mention of misadventure at the time of the procedure | CPT/HCPCS: 97597 ==

== ENCOUNTER → 2023-05-20 14:59 | Outpatient (BNVA) | payer MEDICAID, SELFPAY | PROVIDERS: Visit Provider Student in an Organized Health Care Education/Training Program | DX: S82.201D Unspecified fracture of shaft of right tibia, subsequent encounter for closed fracture with routine healing; S82.401D Unspecified fracture of shaft of right fibula, subsequent encounter for closed fracture with routine healing; Z98.890 Other specified postprocedural states; M17.11 Unilateral primary osteoarthritis, right knee; X58.XXXD Exposure to other specified factors, subsequent encounter; Z87.81 Personal history of (healed) traumatic fracture | CPT/HCPCS: 36415; 73590; 73610; 85025; 85651; 86140; 99213 ==

== ENCOUNTER → 2023-05-26 09:03 | Outpatient (BNVA) | payer MEDICAID, SELFPAY | PROVIDERS: Visit Provider Thoracic Surgery (Cardiothoracic Vascular Surgery) | DX: I96 Gangrene, not elsewhere classified (principal); T81.31XD Disruption of external operation (surgical) wound, not elsewhere classified, subsequent encounter; Y83.8 Other surgical procedures as the cause of abnormal reaction of the patient, or of later complication, without mention of misadventure at the time of the procedure | CPT/HCPCS: 97597; A6212 ==